=== PATIENT | female | born 2000 | race Caucasian/White ===

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

== ENCOUNTER 2022-12-10 14:45 | Emergency (ER) | payer BC, OTHER | END 2022-12-10 16:32 | disposition home or self-care (01) | LOC: JD.ED 14:45 | DX: S33.8XXA Sprain of other parts of lumbar spine and pelvis, initial encounter (principal); R51.9 Headache, unspecified; M79.652 Pain in left thigh; J45.909 Unspecified asthma, uncomplicated; F17.210 Nicotine dependence, cigarettes, uncomplicated; Z79.899 Other long term (current) drug therapy; V80.010A Animal-rider injured by fall from or being thrown from horse in noncollision accident, initial encounter | CPT/HCPCS: 70450; 70450-26; 72220; 72220-26; 73552-26-LT; 73552-LT; 99283; 99284 ==